=== PATIENT | female | born 2005 | race Two or more races ===

== ENCOUNTER 2024-10-29 12:07 | Emergency (ER) | payer MEDICAID, SELFPAY ==
[2024-10-29 12:08] VITALS: BMI 24.7
[2024-10-29 12:19] VITALS: BP 125/82; PULSE 76; RESP 18; TEMP 37.1; O2SAT 99
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
--- NOTE | 2024-10-29 13:00 | PC.NURSE ---
Pt refuse X-Ray, EZEQUIEL Rico made aware
[2024-10-29] MEDS: DIPHTH,PERTUSS(ACELL),TET VAC 0.5 ML SYR- ADULT IMi (13:22)
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
== END 2024-10-29 14:30 | disposition home or self-care (01) ==
PROVIDERS: Emergency Provider Family Medicine; PCP Nurse Practitioner Family
DX: S70.02XA Contusion of left hip, initial encounter (principal); S80.212A Abrasion, left knee, initial encounter; S00.81XA Abrasion of other part of head, initial encounter; V89.2XXA Person injured in unspecified motor-vehicle accident, traffic, initial encounter; R51.9 Headache, unspecified; S19.9XXA Unspecified injury of neck, initial encounter
CPT/HCPCS: 70450; 72125; 90471; 90715; 99284

== ENCOUNTER 2025-04-23 08:14 | Emergency (ER) | payer MEDICAID, SELFPAY ==
[2025-04-23 08:15] VITALS: BMI 24.4
[2025-04-23 08:23] VITALS: BP 105/69; PULSE 67; RESP 18; TEMP 36.8; O2SAT 100
[2025-04-23] MEDS: RINGERS LACTATED 1000 ML 1,000 ML 999 ML IV ×2 (09:20→12:07)
--- NOTE | 2025-04-23 09:23 | EDNOTE_ITS ---
Nausea/Vomit./Diarrhea-RME/HPI General Chief complaint: Nausea/Vomiting/Diarrhea Stated complaint: I'M HAVING WITHDRAWL SYMPTOMS FROM THC Time Seen by Provider: 04/23/25 08:59 Arrival date/time: 04/23/25 08:14 RME / HPI RME / HPI Narrative: 19-year-old female here for evaluation of nausea,, vomiting, diarrhea onset last night. States that she has been using marijuana recently discussed coping with this and after friend's . Yesterday she had marijuana edibles and then smoked at 930 last night. Has history of hyperemesis with marijuana use in the past. Notes that she has been vomiting throughout the night and unable to keep anything down. No other acute symptoms at this time. Related Data Previous Rx's ?Medication ?Instructions ?Recorded metoclopramide HCl 10 mg tablet 10 mg PO BID PRN nause a and 02/13/24 (Reglan) vomiting #30 tabs ibuprofen 600 mg tablet 600 mg PO Q6H #30 tabs 10/29 promethazine 25 mg rectal 25 mg SD Q6H PRN nausea and 04/23/25 suppository vomiting #12 ea promethazine 25 mg tablet 25 mg PO TID PRN nausea and 04/23/25 vomiting #20 tabs Allergies Allergy/AdvReac Type Severity Reaction Status Date / Time No Known Drug Allergies Allergy Verified 04/23/25 08:59 Review of Systems Review of Systems Systems Reviewed: All systems reviewed, normal except as documented Past Medical History Family History FAMILY HISTORY: Positive Family Cardiac Disorders Social History SMOKING STATUS: Never smoker Past Medical History Comments PMH COMMENT: History of marijuana use ED Exam Narrative Physical exam: Constitutional: Awake, alert, appears unwell, hyperventilating, dry heaving at times, uncomfortable. HEENT: Normocephalic, atraumatic, extraocular movements intact. Neck: Supple CV: Regular rate and rhythm, no murmurs/rubs/gallops Lungs: Clear to auscultation BL, tachypneic/hyperventilating. Abd: Soft, NT, ND, no HSM noted to palpation Neuro: alert, no acute neuro deficit noted. Skin: Warm, dry, intact Course Course Course Narrative: 1230h: RN reports the patient tolerated po and no longer vomiting, plan to DC home. 1251h: RN reports the patient is vomiting again, will order Haldol. 1400h: Patient is still vomiting after Haldol. 1445h: Patient tolerated second po trial. Will DC home. Quality Measures none Orders Category Date Time Status Miscellaneous Nursing Order NOW Care 04/23/25 11:56 Completed CBC Stat Lab 04/23/25 09:15 Completed CMP [Comprehensive Metabolic Panel] Stat Lab 04/23/25 09:15 Completed Drug Screen,Urine Stat Lab 04/23/25 12:13 Completed HCG Qualitative,Urine Stat Lab 04/23/25 12:13 Completed Lipase Stat Lab 04/23/25 09:15 Completed UA [Urinalysis] Stat Lab 04/23/25 12:13 Completed Urine Culture Stat Lab 04/23/25 12:13 Received Capsaicin Cr [Zostrix Cr] Med 04/23/25 09:21 Discontinued See Dose Instructions TOP X1 ONE DiphenhydrAMINE INJ [Benadryl Inj] Med 04/23/25 09:21 Discontinued 25 mg IVP X1 ONE Haloperidol Lactate [Haldol Inj] Med 04/23/25 12:48 Discontinued 4 mg IV NOW ONE Metoclopramide Inj [Reglan Inj] Med 04/23/25 09:21 Discontinued 10 mg IVP X1 ONE POTASSIUM CHL 10 mEq IVPB [Kcl Ivpb] Med 04/23/25 11:43 Discontinued 10 meq in 100 ml IV X1 Potassium Chloride [K-Dur] Med 04/23/25 11:56 Discontinued 40 meq PO X1 ONE Ringers Lactated 1000 ml [Lactated Ringers] 1,000 ml Med 04/23/25 09:19 Discontinued IV 999 mls/hr Ringers Lactated 1000 ml [Lactated Ringers] 1,000 ml Med 04/23/25 11:43 Discontinued IV 999 mls/hr Vital Signs Vital signs: Vital Signs Temperature 98.2 F 04/23/25 08:23 Pulse Rate 67 04/23/25 08:23 Respiratory Rate 18 04/23/25 08:23 Blood Pressure 105/69 04/23/25 08:23 Pulse Oximetry (%) 100 04/23/25 08:23 Oxygen Delivery Method Room Air 04/23/25 08:23 Pulse ox is 100% on room air which is adequate. Nausea/Vomiting/Diarrhea MDM Narrative MDM Narrative:: 19-year-old female coming for evaluation of nausea, vomiting, diarrhea onset yesterday evening in context of recent marijuana use with no history of hyperemesis from marijuana use. Initial labs ordered for further evaluation. IV fluids and antiemetics ordered as well. Patient data External records reviewed:: [facility] previous records Clinical information provided by:: patient Social determinants that could affect healthcare access:: none Patient has the following chronic illnesses:: None How is presenting disease/condition affected by chronic disease/condition?: no chronic disease Evaluation data The following diagnostics were reviewed and interpreted by me:: lab results Lab and/or radiology exams considered but not ordered:: None Interpretation Summary: See above Medications / Prescriptions Medications / Prescriptions considered but not ordered:: None Medication administrations:: Medication Administration History Discontinued Medications Capsaicin (Capsaicin Cr 60 Gm Tube) 0 gm TOP X1 ONE Stop: 04/23/25 09:22 Last Admin: 04/23/25 09:34 Dose: 2 applicatio Documented By: ANNIKA Comments: APPLIED TO CHEST Diphenhydramine HCl (Diphenhydramine Inj 50 Mg/Ml Vial) 25 mg IVP X1 ONE Stop: 04/23/25 09:22 Last Admin: 04/23/25 09:27 Dose: 25 mg Documented By: ANNIKA Haloperidol Lactate (Haloperidol Lact Inj 5 Mg/Ml Vial) 4 mg IV NOW ONE Stop: 04/23/25 12:49 Last Admin: 04/23/25 13:00 Dose: 4 mg Documented By: ANNIKA Comments: VERIFIED WITH DR. GUERRA IF OK TO GIVE IV; PER DR. GUERRA, YES GIVE IV; PT IS VOMITING AGAIN. Lactated Ringer's (Lactated Ringers) 1,000 mls @ 999 mls/hr IV .Q1H1M ONE Stop: 04/23/25 10:19 Last Infusion: 04/23/25 10:38 Dose: Infused Documented By: Admin: 04/23/25 09:20 Dose: 999 mls/hr Documented By: ANNIKA Potassium Chloride (Kcl Ivpb) 10 meq in 100 mls @ 100 mls/hr IV X1 ONE Stop: 04/23/25 12:42 Last Infusion: 04/23/25 13:14 Dose: Infused Documented By: Admin: 04/23/25 12:08 Dose: 100 mls/hr Documented By: ANNIKA Lactated Ringer's (Lactated Ringers) 1,000 mls @ 999 mls/hr IV .Q1H1M ONE Stop: 04/23/25 12:43 Last Infusion: 04/23/25 13:14 Dose: Infused Documented By: Admin: 04/23/25 12:07 Dose: 999 mls/hr Documented By: ANNIKA Metoclopramide HCl (Metoclopramide Inj 5 Mg/Ml Vial 2 Ml) 10 mg IVP X1 ONE; Protocol Stop: 04/23/25 09:22 Last Admin: 04/23/25 09:28 Dose: 10 mg Documented By: ANNIKA Potassium Chloride (Potassium Chloride 20 Meq Tabcr) 40 meq PO X1 ONE Stop: 04/23/25 11:57 Last Admin: 04/23/25 12:09 Dose: 40 meq Documented By: ANNIKA See above Consultations Consultation(s) initiated? (list below): No Diagnosis Nausea Differential Diagnosis: food poisoning, gastroenteritis, drug-induced nausea and vomiting and dehydration Most likely diagnosis given after review of the tests above:: Hyperemesis secondary to marijuana use Admission Indicated Admission indicated?: not indicated Admission Request Was there a request for admission?: No Disposition Plan Disposition Plan: Discharge Discharge Attestation Discharge Attestation: The patient and all family members were given an opportunity to ask questions and understood the discharge instructions. Discharge instructions specifically effects, indications for sooner follow up or return to the emergency department, and the expected course of current diagnosis. Patient condition: Stable Discharge Plan Plan Patient Disposition: HOME (Self Care) Patient condition on transfer: Stable Prescriptions/Referrals Prescriptions/Med Rec: New promethazine 25 mg tablet 25 mg PO TID PRN (Reason: nausea and vomiting) Qty: 20 0RF promethazine 25 mg suppository 25 mg SD Q6H PRN (Reason: nausea and vomiting) Qty: 12 0RF No Action metoclopramide HCl [Reglan] 10 mg tablet 10 mg PO BID PRN (Reason: nausea and vomiting) Qty: 30 0RF ibuprofen 600 mg tablet 600 mg PO Q6H Qty: 30 0RF Referrals: Jorge A Rangel MD [Primary Care Provider, Family Practice] - In 1 week Problem List Clinical Impression: Drug-induced nausea and vomiting, Marijuana abuse Patient/Caregiver Discharge Instructions Education Materials: ED Marijuana Abuse, ED Vomiting (Adult) Additional Instructions: Some general health principles that can help you are the [employer] principles: Nutrition (eat a plant-based diet, avoiding meats in general, avoiding highly processed foods) Exercise (Daily exercise/walks as tolerated) Water (Drink adequate fresh water to maintain hydration, concentrating on water rather than on soda, coffee, tea, juice, etc for hydration) [place] (Spend time - 15-20 minutes or so with skin exposed in the case packer and late evening sun for Vitamin D health benefits) [place] (Avoid alcohol, illicit drugs, caffeinated beverages, smoking, etc) Air (Deep breathing exercises in the early mornings in fresh air) Rest (Adequate rest at night, going to bed a few hours before midnight and avoiding all screens/television/loud music in the time right before going to bed, also avoiding heavy meals just prior to going to bed) Trust in God (Spend time daily in Bible study and prayer - health benefits in contemplation of God's true character) Additional resources that can benefit: www.[employer].Content Synd[employer]: [employer], look under resources and seminars. Another good website is www.[employer].org Print Language: [place]an Stand Alone Forms: Vivian Award Info., Patient Portal Info Letter
[2025-04-23] MEDS: METOCLOPRAMIDE INJ 5 MG/ML VIAL 2 ML 10 MG IVP (09:28)
[2025-04-23] MEDS: CAPSAICIN CR 60 GM TUBE TOP (09:34)
[2025-04-23 09:41] LABS: Basophils # (Auto) 0.0 Thou/mm3 (0.0-0.2); Basophils % (Auto) 0 % (0-2.5); Eosinophils # (Auto) 0.0 Thou/mm3 (0.0-0.5); Eosinophils % (Auto) 0 % (0-10); Hematocrit 38.9 % (36.0-46.0); Hemoglobin 13.7 g/dL (12.0-16.0); Immature Granulocytes Auto 0.07 Thou/mm3 (0.00-0.00); Lymphocytes # (Auto) 1.4 Thou/mm3 (1.0-4.8); Lymphocytes % (Auto) 12 % (10-50); Mean Corpuscular HGB Conc 35.2 g/dl (31.0-37.0); Mean Corpuscular Hemoglobin 31.4 pg (25.0-35.0); Mean Corpuscular Volume 89 fL (80-100); Monocytes # (Auto) 0.4 Thou/mm3 (0.0-0.8); Monocytes % (Auto) 3 % (0-12); Neutrophils # (Auto) 9.7 Thou/mm3 (1.8-7.7); Neutrophils % (Auto) 84 % (37-80); Nucleated Red Blood Cell # 0.00 Thou/mm3 (0.00-0.00); Nucleated Red Blood Cell % 0 /100 WBC (0); Platelet Count 308 Thou/mm3 (140-440); RDW Standard Deviation 40.3 fL (36.4-46.3); Red Blood Count 4.36 Miln/mm3 (4.00-5.20); White Blood Count 11.6 Thou/mm3 (3.6-11.0)
[2025-04-23 10:06] LABS: Alanine Aminotransferase < 7 U/L (10-49); Albumin, Serum 5.1 gm/dL (3.5-5.0); Albumin/Globulin Ratio 1.8 (1.2-2.2); Alkaline Phosphatase 40 U/L (46-116); Anion Gap 18 (7-16); Aspartate Amino Transferase < 8 U/L (0-34); BUN/Creatinine Ratio 10 Ratio (12-20); Bilirubin,Total 0.6 mg/dL (0.3-1.2); Blood Urea Nitrogen 10 mg/dL (9-23); Calcium 10.0 mg/dL (8.3-10.6); Calcium (Corrected) 10.0 mg/dL (8.5-10.1); Carbon Dioxide 16.6 mMol/L (20.0-31.0); Chloride 105 mMol/L (98-107); Creatinine (Component) 1.0 mg/dL (0.6-1.3); Estimated Creatinine Clearance 73.6 mL/min (>60); Globulin 2.9 gm/dL (2.3-3.5); Glucose 154 mg/dL (74-106); Lipase 37 U/L (12-53); Osmolality,Calculated 281 (275-295); Potassium 3.2 mMol/L (3.4-5.1); Sodium 140 mMol/L (136-145); Total Protein 8.0 gm/dL (5.7-8.2); eGFR > 60 See Note
[2025-04-23 10:37] VITALS: BP 115/71; PULSE 76; RESP 17; O2SAT 100
[2025-04-23] MEDS: POTASSIUM CHL 10 mEq IVPB 10 MEQ/100 ML BAG 100 MEQ IV (12:08)
--- NOTE | 2025-04-23 12:12 | PC.NURSE ---
PT GIVEN WATER & ORANGE JUICE FOR PO TRIAL; PT DRANK A CUP OF WATER AND ORANGE JUICE BOX WITH NO DIFFICULTY. PT DENIES ANY N/V AT THIS TIME.
[2025-04-23 12:29] LABS: Collection Type, Urine Clean Catch
[2025-04-23 12:43] LABS: HCG Qualitative,Urine Negative
[2025-04-23 12:49] LABS: Bilirubin,Urine Negative (Negative); Blood,Urine 3+ (Negative); Clarity,Urine Clear (Clear/Hazy); Color,Urine Yellow (Lt Yel-Yel); Glucose, Urine 2+ (Negative); Ketones,Urine 3+ (Negative); Leukocyte Esterase,Urine Negative (Negative); Nitrite,Urine Negative (Negative); PH,Urine 8.0 (5.0-7.0); Protein,Urine 1+ (Neg - Trace); RBC,Urine 31 /hpf (0-3); Specific Gravity,Urine 1.019 (1.001-1.035); Squamous Epithelial Cell,Urine 9 /hpf (0-5); Urobilinogen,Urine Negative mg/dL (0.0-1.0); WBC,Urine 1 /hpf (0-5)
--- NOTE | 2025-04-23 12:55 | PC.NURSE ---
RN AT BEDSIDE; PT BEGAN TO THROW UP AGAIN; DR. Stephanie GUERRA MADE AWARE. NEW ORDERS RECEIVED AT THIS TIME.
[2025-04-23] MEDS: HALOPERIDOL LACT INJ 5 MG/ML VIAL 4 MG IV (13:00)
[2025-04-23 14:07] LABS: Amphetamine/Methamp Scrn,U Negative (Negative); Barbiturate Screen,Urine Negative (Negative); Benzodiazepines Screen,Urine Negative (Negative); Benzoylecgonine Screen, Ur Negative (Negative); Fentanyl Screen,Urine Negative (Negative); Opiate Screen,Urine Negative (Negative); THC Screen,Urine Positive (Negative)
[2025-04-23 14:45] VITALS: BP 111/71; PULSE 63; RESP 17; O2SAT 98
== END 2025-04-23 14:47 | disposition home or self-care (01) ==
PROVIDERS: Nurse Practitioner Family; Emergency Provider Family Medicine; PCP Family Medicine
DX: R11.2 Nausea with vomiting, unspecified (principal); F12.10 Cannabis abuse, uncomplicated; F17.200 Nicotine dependence, unspecified, uncomplicated
CPT/HCPCS: 36415; 80053; 80307; 81001; 81025; 83690; 85025; 87086; 96361; 96365; 96375; 99283; J1200; J1630; J2765; J3480; J7120; A9270